=== PATIENT | female | born 1950 | race Caucasian/White ===

== ENCOUNTER 2019-05-15 14:33 | Emergency (ER) | payer MEDICARE ==
[~2019-05-15] VITALS: Ht 167.6 cm; Wt 61.4 kg
[2019-05-15 14:41] VITALS: Ht 167.6 cm; Wt 61.4 kg
[2019-05-15] MEDS ORDERED: LEXAPRO10 MG PO (14:42)
[2019-05-15] MEDS ORDERED: DONEPEZIL HCL10 MG PO (14:43)
[2019-05-15] MEDS ORDERED: LIPITOR40 MG PO (14:43)
[2019-05-15] MEDS ORDERED: PRISTIQ50 MG PO (14:44)
[2019-05-15 15:17] LABS: BASOPHILS 0.3 % (0-2); EOSINOPHILS 4.4 % (0-7); HEMATOCRIT 43.3 % (36.0-48.0); HEMOGLOBIN 14.4 g/dL (12-16); IMMATURE GRANULOCYTES 0.3 % (0-5); LYMPHOCYTES 13.5 % (15-50); MCH 33.2 pg (26.0-34.0); MCHC 33.3 g/dL (31.0-37.0); MCV 99.8 fL (80.0-100.0); MEAN PLATELET VOLUME 8.9 fL (7.4-10.4); MONOCYTES 7.1 % (2-11); NEUTROPHILS 74.4 % (40-80); PLATELET COUNT 281 10x3/uL (130-400); RBC 4.34 10x6/uL (4.00-5.40); RDW 13.1 % (11.5-14.5)
[2019-05-15 15:29] LABS: APPEARANCE CLEAR (CLEAR); BILIRUBIN NEGATIVE (NEGATIVE); COLOR YELLOW (YELLOW); GLUCOSE NEGATIVE (NEGATIVE); KETONE NEGATIVE (NEGATIVE); NITRITE NEGATIVE (NEGATIVE); PROTEIN NEGATIVE (NEGATIVE); UROBILINOGEN NORMAL (NORMAL)
[2019-05-15 15:30] LABS: RED CELLS - URINE 0-5 /hpf (0-5); WHITE CELLS - URINE OCC /hpf (NEGATIVE)
[2019-05-15 15:33] LABS: CALC OSMOLALITY 275 mosm/kg (275-300); CALCIUM 8.9 mg/dL (8.5-10.1); CARBON DIOXIDE 28.3 mmol/L (21.0-32.0); CHLORIDE - SERUM 103 mmol/L (98-107); CREATININE - SERUM 0.6 mg/dL (0.6-1.3); GLUCOSE 89 mg/dL (74-106); POTASSIUM - SERUM 3.5 mmol/L (3.5-5.1); SODIUM 139 mmol/L (136-145); UREA NITROGEN 10 mg/dL (7-18); eGFR NON AFRICAN AMERICAN > 90 mL/min (90-120)
[2019-05-15 15:39] LABS: ALBUMIN 3.5 g/dL (3.4-5.0); ALKALINE PHOSPHATASE 108 U/L (46-116); ALT (SGPT) 22 U/L (10-68); AMYLASE - SERUM 49 U/L (25-115); BILIRUBIN - TOTAL 0.29 mg/dL (0.2-1.3); LIPASE 127 U/L (73-393); PROTEIN - SERUM 6.6 g/dL (6.4-8.2)
[2019-05-15] MEDS ORDERED: ZOFRAN4 MG PO (17:06)
[2019-05-15 18:12] VITALS: BP 136/73
== END 2019-05-15 18:12 | disposition home or self-care (01) ==
LOC: D.ER 14:33
PROVIDERS: Family Medicine
DX: A08.4 Viral intestinal infection, unspecified (principal); E78.5 Hyperlipidemia, unspecified; Z95.0 Presence of cardiac pacemaker

== ENCOUNTER 2019-05-31 08:27 | Inpatient (IN) | payer MEDICARE ==
[~2019-05-31] VITALS: Ht 167.6 cm; Wt 58.5 kg
[~2019-05-31 08:27] MED LIST: DONEPEZIL HCL10 MG PO; LEXAPRO10 MG PO; LIPITOR40 MG PO; PRISTIQ50 MG PO; ZOFRAN4 MG PO
[2019-05-31 08:58] LABS: HEMATOCRIT 40.3 % (36.0-48.0); HEMOGLOBIN 13.6 g/dL (12-16); MCH 32.3 pg (26.0-34.0); MCHC 33.7 g/dL (31.0-37.0); MCV 95.7 fL (80.0-100.0); MEAN PLATELET VOLUME 8.8 fL (7.4-10.4); PLATELET COUNT 355 10x3/uL (130-400); RBC 4.21 10x6/uL (4.00-5.40); RDW 12.7 % (11.5-14.5); WBC 21.2 10x3/uL (4.8-10.8)
[2019-05-31 09:03] LABS: CALC OSMOLALITY 281 mosm/kg (275-300); CALCIUM 8.5 mg/dL (8.5-10.1); CARBON DIOXIDE 27.8 mmol/L (21.0-32.0); CHLORIDE - SERUM 104 mmol/L (98-107); CREATININE - SERUM 0.7 mg/dL (0.6-1.3); GLUCOSE 98 mg/dL (74-106); POTASSIUM - SERUM 3.1 mmol/L (3.5-5.1); SODIUM 142 mmol/L (136-145); UREA NITROGEN 9 mg/dL (7-18); eGFR NON AFRICAN AMERICAN 88 mL/min (90-120)
[2019-05-31 09:09] LABS: ALKALINE PHOSPHATASE 105 U/L (46-116); ALT (SGPT) 28 U/L (10-68); BILIRUBIN - TOTAL 0.29 mg/dL (0.2-1.3); LIPASE 186 U/L (73-393); PROTEIN - SERUM 6.1 g/dL (6.4-8.2)
[2019-05-31 09:17] LABS: EOSINOPHILS 20 % (0-7); LYMPHOCYTES 7 % (15-50); MONOCYTES 4 % (2-11); NEUTROPHILS 67 % (40-80); PLATELET ESTIMATE NORMAL
[2019-05-31 09:24] LABS: APPEARANCE CLEAR (CLEAR); BILIRUBIN NEGATIVE (NEGATIVE); COLOR YELLOW (YELLOW); GLUCOSE NEGATIVE (NEGATIVE); KETONE NEGATIVE (NEGATIVE); NITRITE NEGATIVE (NEGATIVE); PROTEIN NEGATIVE (NEGATIVE); UROBILINOGEN NORMAL (NORMAL)
[2019-05-31 09:25] LABS: BACTERIA NONE SEEN /hpf (NEGATIVE); EPITHELIAL CELLS NSEEN /hpf (0-5); RED CELLS - URINE 0-5 /hpf (0-5); WHITE CELLS - URINE NSEEN /hpf (NEGATIVE)
--- NOTE | 2019-05-31 09:48 | NUR ---
TALKED TO PTS DAUGHTER ON THE PHONE, SHE STATES PT HAS DEMENTIA AND IS NOT TAKING HER MEDS LIKE SHE SHOULD, NOT DRINKING ENOUGH WATER. WAS IN [facility] FOR SAME COMPLAINT A WEEK AGO. DX WITH INFECTIOUS ENTERITIS IN HER LOWER BOWEL AND INFLAMED COLON.
[2019-05-31] MEDS ORDERED: ED-SPAZ0.125 MG PO (11:33)
[2019-05-31] MEDS ORDERED: LIPITOR20 MG PO (11:57)
[2019-05-31 13:44] VITALS: BP 101/40
[2019-05-31 17:48] VITALS: BP 99/58
[2019-05-31 19:30] VITALS: BP 164/33
[2019-06-01 00:30] VITALS: BP 130/91
--- NOTE | 2019-06-01 02:39 | NUR ---
I have reviewed this patient and I concur with the Shift Assessment completed by the Licensed Practical Nurse today this shift.
[2019-06-01 05:01] VITALS: BP 98/40
[2019-06-01 05:58] LABS: BASOPHILS 0.2 % (0-2); EOSINOPHILS 17.4 % (0-7); HEMATOCRIT 32.5 % (36.0-48.0); HEMOGLOBIN 10.9 g/dL (12-16); IMMATURE GRANULOCYTES 0.4 % (0-5); LYMPHOCYTES 7.7 % (15-50); MCHC 33.5 g/dL (31.0-37.0); MCV 98.5 fL (80.0-100.0); MONOCYTES 4.7 % (2-11); NEUTROPHILS 69.6 % (40-80); PLATELET COUNT 288 10x3/uL (130-400); RDW 13.3 % (11.5-14.5); WBC 21.5 10x3/uL (4.8-10.8)
[2019-06-01 06:22] LABS: CALCIUM 7.6 mg/dL (8.5-10.1); CARBON DIOXIDE 23.1 mmol/L (21.0-32.0); CHLORIDE - SERUM 110 mmol/L (98-107); GLUCOSE 95 mg/dL (74-106); MAGNESIUM - SERUM 1.9 mg/dL (1.8-2.4); SODIUM 142 mmol/L (136-145)
[2019-06-01 06:24] LABS: CALC OSMOLALITY 279 mosm/kg (275-300); CREATININE - SERUM 0.5 mg/dL (0.6-1.3); POTASSIUM - SERUM 3.6 mmol/L (3.5-5.1); UREA NITROGEN 4 mg/dL (7-18); eGFR NON AFRICAN AMERICAN > 90 mL/min (90-120)
[2019-06-01 08:05] VITALS: BP 96/43
--- NOTE | 2019-06-01 08:34 | NUR ---
DAUGHTER IN ROOM. CL IN REACH. PATIENT UP TO BEDSIDE COMMODE. REPORTS NAUSEA. CL IN REACH. WCTM
[2019-06-01 12:38] VITALS: Ht 167.6 cm; Wt 58.5 kg
[2019-06-01 12:45] VITALS: BP 105/40
[2019-06-01] MEDS ORDERED: LEXAPRO10 MG PO (13:19)
--- NOTE | 2019-06-01 13:21 | NUR ---
PATIENT STATES SHE NEEDS HER "ANXIETY DEPRESSION MEDICINE." I ASKED HER WHAT AND SHE SAID LEXAPRO. TOLD HER THAT I WOULD ADD TO HER HOME MED LIST. CL IN REACH. SOPHIATM
--- NOTE | 2019-06-01 13:39 | NUR ---
PATIENT ON CL CO GAS PAINS. WILL SEE WHAT I CAN GET HER. CL IN REACH. WCTM
[2019-06-01 16:17] VITALS: BP 102/40
[2019-06-01 19:30] VITALS: BP 107/35
--- NOTE | 2019-06-01 20:00 | NUR ---
ALERT UP AMBULATING IN ROOM, DENIES PAIN OR NEEDS AT THIS TIME, SEE SHIFT ASSESSMENT, CALL LIGHT IN REACH
[2019-06-02 00:30] VITALS: BP 98/36
[2019-06-02 04:50] VITALS: BP 120/47
[2019-06-02 07:05] LABS: BASOPHILS 0.4 % (0-2); EOSINOPHILS 39.4 % (0-7); HEMATOCRIT 34.4 % (36.0-48.0); HEMOGLOBIN 11.1 g/dL (12-16); IMMATURE GRANULOCYTES 1.3 % (0-5); LYMPHOCYTES 13.1 % (15-50); MCH 31.6 pg (26.0-34.0); MCHC 32.3 g/dL (31.0-37.0); MEAN PLATELET VOLUME 8.6 fL (7.4-10.4); MONOCYTES 5.5 % (2-11); NEUTROPHILS 40.3 % (40-80); PLATELET COUNT 286 10x3/uL (130-400); RBC 3.51 10x6/uL (4.00-5.40); RDW 13.3 % (11.5-14.5)
[2019-06-02 07:06] LABS: WBC 13.9 10x3/uL (4.8-10.8)
[2019-06-02 07:18] LABS: CALC OSMOLALITY 282 mosm/kg (275-300); CALCIUM 8.2 mg/dL (8.5-10.1); CARBON DIOXIDE 25.5 mmol/L (21.0-32.0); CHLORIDE - SERUM 110 mmol/L (98-107); CREATININE - SERUM 0.4 mg/dL (0.6-1.3); GLUCOSE 81 mg/dL (74-106); MAGNESIUM - SERUM 2.1 mg/dL (1.8-2.4); POTASSIUM - SERUM 3.8 mmol/L (3.5-5.1); SODIUM 144 mmol/L (136-145); UREA NITROGEN 3 mg/dL (7-18); eGFR NON AFRICAN AMERICAN > 90 mL/min (90-120)
--- NOTE | 2019-06-02 08:00 | NUR ---
DAUGHTER IN ROOM. STATES SHE HAS DEMENTIA, A HEADACHE, AND NAUSEA. CL IN REACH. TM
[2019-06-02 09:19] VITALS: BP 114/66
[2019-06-02 12:40] LABS: BASOPHILS 1 % (0-2); EOSINOPHILS 34 % (0-7); LYMPHOCYTES 13 % (15-50); MONOCYTES 6 % (2-11); NEUTROPHILS 45 % (40-80); PLATELET ESTIMATE NORMAL; SMUDGE CELLS OCC
[2019-06-02 12:41] LABS: ANISOCYTOSIS OCC
[2019-06-02 13:53] VITALS: BP 123/52
[2019-06-02 18:05] VITALS: BP 117/40
[2019-06-02 20:52] VITALS: BP 121/50
[2019-06-03] VITALS (7 sets, daily range): BP systolic 84–118; BP diastolic 37–62
[2019-06-03 05:04] LABS: BASOPHILS 0.6 % (0-2); EOSINOPHILS 31.3 % (0-7); HEMATOCRIT 34.1 % (36.0-48.0); IMMATURE GRANULOCYTES 1.9 % (0-5); MCH 31.6 pg (26.0-34.0); MCHC 32.3 g/dL (31.0-37.0); MEAN PLATELET VOLUME 8.9 fL (7.4-10.4); MONOCYTES 6.9 % (2-11); NEUTROPHILS 41.3 % (40-80); PLATELET COUNT 331 10x3/uL (130-400); RBC 3.48 10x6/uL (4.00-5.40); RDW 13.3 % (11.5-14.5); WBC 10.8 10x3/uL (4.8-10.8)
[2019-06-03 05:26] LABS: CALC OSMOLALITY 278 mosm/kg (275-300); CALCIUM 8.2 mg/dL (8.5-10.1); CARBON DIOXIDE 26.2 mmol/L (21.0-32.0); CHLORIDE - SERUM 108 mmol/L (98-107); CREATININE - SERUM 0.5 mg/dL (0.6-1.3); GLUCOSE 90 mg/dL (74-106); MAGNESIUM - SERUM 2.1 mg/dL (1.8-2.4); POTASSIUM - SERUM 3.8 mmol/L (3.5-5.1); SODIUM 142 mmol/L (136-145); eGFR NON AFRICAN AMERICAN > 90 mL/min (90-120)
[2019-06-03 05:35] LABS: UREA NITROGEN 2 mg/dL (7-18)
--- NOTE | 2019-06-03 08:21 | NUR ---
AWAKE AND AELRT ORIENTED X3. ANSWERS ALL QUESTIONS APPROPRIATELY. LUNGS ARE CLEAR BILATERALLY, NO COUGH NOTED. SKIN IS INTACT WTIHOUT REDNESS. IV TO RIGHT FOREARM IS PATENT WTIHOUT REDNESS AT INSERTION SITE. DENIES NEEDS.
--- NOTE | 2019-06-03 10:12 | NUR ---
TOOK AM MEDS WITHOUT DIFFICULTY. DENIES NEEDS.
--- NOTE | 2019-06-03 12:30 | NUR ---
ATE OVER HALF OF FULL LIQUID LUNCH WITHOUT NAUSEA OR DIARRHEA. DENIES NEEDS.
--- NOTE | 2019-06-03 14:00 | NUR ---
HAD SMALL AMOUNT OF WATERY STOOL WITH POSSIBLE BLOOD. UP TO SHOWER WITH SET UP ASSIST.
--- NOTE | 2019-06-03 18:14 | NUR ---
ATE MOST OF SUPPER. VISITIORS IN ROOM. DENIES NEEDS. NO CHANGES NOTED.
--- NOTE | 2019-06-04 02:58 | NUR ---
ALERT ABLE TO VOICE NEEDS AND WANTS TO STAFF. ON ROOM AIR, IV TO RIGHT FA WITH NS WITH 40 OF K AT 70ML/HR. REMAINS ON ENTERIC ISOLATION. SCD'S PLACED ON PATIENT BUT SHE REMOVED. CALL LIGHT AND WATER IN REACH.
[2019-06-04 06:07] LABS: HEMOGLOBIN 12.4 g/dL (12-16); MCH 31.6 pg (26.0-34.0); MCHC 32.6 g/dL (31.0-37.0); MCV 96.7 fL (80.0-100.0); MEAN PLATELET VOLUME 8.7 fL (7.4-10.4); PLATELET COUNT 310 10x3/uL (130-400); RBC 3.93 10x6/uL (4.00-5.40); RDW 13.1 % (11.5-14.5); WBC 8.9 10x3/uL (4.8-10.8)
[2019-06-04 06:55] LABS: CALC OSMOLALITY 279 mosm/kg (275-300); CALCIUM 8.6 mg/dL (8.5-10.1); CARBON DIOXIDE 24.7 mmol/L (21.0-32.0); CHLORIDE - SERUM 107 mmol/L (98-107); CREATININE - SERUM 0.6 mg/dL (0.6-1.3); GLUCOSE 91 mg/dL (74-106); MAGNESIUM - SERUM 2.1 mg/dL (1.8-2.4); POTASSIUM - SERUM 3.8 mmol/L (3.5-5.1); SODIUM 142 mmol/L (136-145); eGFR NON AFRICAN AMERICAN > 90 mL/min (90-120)
[2019-06-04 06:56] LABS: UREA NITROGEN 5 mg/dL (7-18)
--- NOTE | 2019-06-04 07:52 | NUR ---
AWAKE AND ALERT. ORIENTED X3. NO C/O AT THIS TIME. CHANGED HER MIND ABOUT REAL FOOD THIS AM. WILL MONITOR HOW SHE DOES WITH REGULAR DIET. LUNGS ARE CLEAR BILATERALLY,NO COUGH NOTED. SKIN IS INTACT WTIHOUT REDNESS. NO BM IN PM,ONLY ONE IN 24 HOURS. WILL CONTINUE TO MONITOR. IV TO RIGHT FOREARM IS PATENT WITHOUT REDNESS AT INSERTION SITE. DENIES NEEDS.
[2019-06-04 09:16] LABS: ANISOCYTOSIS OCC; EOSINOPHILS 14 % (0-7); LYMPHOCYTES 17 % (15-50); MONOCYTES 11 % (2-11); NEUTROPHILS 57 % (40-80); PLATELET ESTIMATE NORMAL; SMUDGE CELLS OCC
--- NOTE | 2019-06-04 09:30 | NUR ---
ATE ABOUT 75% OF REGULAR BREAKFAST TRAY. TOOK AM MEDS WITHOUT DIFFICULTY. NO NAUSEA OR PAIN WITH REAL FOOD. WILL MONITOR.
--- NOTE | 2019-06-04 09:38 | NUR ---
NUTRITION F/U PT REMAINS IN ISOLATION. REPORTS TOLERATING REG DIET WITH ~50% INTAKE BREAKFAST. PT STATES SHE TRYING TO BE CAREFUL NOT TO "OVERDO IT." WILL CONTINUE TO PROVIDE DIET, MONITOR PO INTAKE. RD FOLLOWING
[2019-06-04 10:12] VITALS: BP 97/62
[2019-06-04 12:47] VITALS: BP 106/59
--- NOTE | 2019-06-04 15:12 | MORECARE ---
CASE MANAGEMENT DISCHARGE SUMMARY PATIENT: SAHIL EARL UNIT: [id number] ADM DATE: 05/31/19 AGE: 69 : 50 SEX: F ROOM/BED: D.2203 AUTHOR: ROSEMARY,DOC PHYSICIAN: REFERRING PHYSICIAN: ABUNDIO ROGERS MD DATE OF SERVICE: 06/04/19 Discharge Plan Patient Name: SAHIL EARL Facility: [facility]:[place] : 1950 Planned Disposition: Home Anticipated Discharge Date: 06/04/19 Discharge Date: Expected LOS: 4 Initial Reviewer: [email or web address] Initial Review Date: 06/04/2019 Generated: 06/04/19 4:12 pm Comments DCP- Discharge Planning Updated by [email or web address]: Carmen Levine on 06/04/19 2:[address] Patient Name: SAHIL EARL Admission Status: Elective Accout number: [id number] Admission Date: 05-31-2019 : 1950 Admission Diagnosis: Attending: ABUNDIO ROGERS Current LOS: 4 Anticipated DC Date: 06-04-2019 Planned Disposition: Home Primary Insurance: MEDICARE A & B Discharge Planning Comments: CM met with patient to complete initial dc planning assessment. CM educated patient on the CM role and verbal consent given by patient to complete assessment. Patient lives at home alone, although states her boyfriend is staying with her right now. At discharge patient plans to return and feels this is a safe discharge. CM discussed availability of home health, rehab services, and medical equipment. Patient denied known discharge needs at this time. CM will continue to follow and will assist as needed with dc plans/needs. Network Cabler: Carmen Levine DCPIA - Discharge Planning Initial Assessment Updated by [email or web address]: Carmen Levine on 06/04/19 3:06 pm * Is the patient Alert and Oriented? Yes * PCP None * Preadmission Environment Home with Family * ADLs Independent * Equipment Other * Other Equipment Monitor under her bed that tests pacemaker battery 24/12 * List name and contact numbers for known caregivers / representatives who currently or will assist patient after discharge: James hernadez - [phone] Beatrice Bhat [phone] * Verbal permission to speak to the caregivers and representatives has been obtained from the patient. Yes * Community resources currently utilized None * Additional services required to return to the preadmission environment? No * Can the patient safely return to the preadmission environment? Yes * Has this patient been hospitalized within the prior 30 days at any hospital? No Patient Name: SAHIL EARL Page [id number] at 1512 All edits/amendments must be made on the electronic document DICTATION DATE: 06/04/191511 SALES PERSON: SATNAM 06/04/191511 RPT#: [id number] DC DATE: STATUS: ADM IN [facility] [address] [place] [address] END OF REPORT
[2019-06-04] MEDS ORDERED: FLAGYL500 MG PO (15:37)
--- NOTE | 2019-06-04 16:30 | NUR ---
DISCHARGE ORDERS RECEIVED. DISCHARGE INSTRUCTIONS GIVEN BOTH VERBALLY AND WRITTEN. ALL QUESTIONS ANSWERED. PATIENT VERBALIZED UNDERSTANDING OF SAME. IV TO RIGHT FOREARM D/C WITH CATHETER INTACT. WAITING ON RIDE FOR CLOTHES T0 DISCHARGE.
--- NOTE | 2019-06-04 17:00 | NUR ---
DISCHARGED TO HOME AMBULATORY WITH SIGNIFICANT OTHER. ALL BELONGINGS WITH PATIENT. NEEDED PRESCRIPTIONS ESCRIBED TO PHARMACY OF CHOICE.
[2019-06-05 16:08] LABS: OVA + PARASITE EXAM Final report (())
--- NOTE | 2019-06-06 09:43 | MORECARE ---
CASE MANAGEMENT DISCHARGE SUMMARY PATIENT: SAHIL EARL UNIT: [id number] ADM DATE: 05/31/19 AGE: 69 : 50 SEX: F ROOM/BED: D.2203 AUTHOR: ROSEMARY,DOC PHYSICIAN: REFERRING PHYSICIAN: ABUNDIO ROGERS MD DATE OF SERVICE: 06/06/19 Discharge Plan Patient Name: SAHIL EARL Facility: [facility]:[place] : 1950 Planned Disposition: Home Anticipated Discharge Date: 06/04/19 Discharge Date: 06/04/2019 Expected LOS: 4 Initial Reviewer: [email or web address] Initial Review Date: 06/04/2019 Generated: 06/06/19 10:43 am Comments DCP- Discharge Planning Updated by [email or web address]: Carmen Levine on 06/04/19 2:[address] Patient Name: SAHIL EARL Admission Status: Elective Accout number: [id number] Admission Date: 05-31-2019 : 1950 Admission Diagnosis: Attending: ABUNDIO ROGERS Current LOS: 4 Anticipated DC Date: 06-04-2019 Planned Disposition: Home Primary Insurance: MEDICARE A & B Discharge Planning Comments: CM met with patient to complete initial dc planning assessment. CM educated patient on the CM role and verbal consent given by patient to complete assessment. Patient lives at home alone, although states her boyfriend is staying with her right now. At discharge patient plans to return and feels this is a safe discharge. CM discussed availability of home health, rehab services, and medical equipment. Patient denied known discharge needs at this time. CM will continue to follow and will assist as needed with dc plans/needs. Germination Worker: Carmen Levine DCPIA - Discharge Planning Initial Assessment Updated by [email or web address]: Carmen Levine on 06/04/19 3:06 pm * Is the patient Alert and Oriented? Yes * PCP None * Preadmission Environment Home with Family * ADLs Independent * Equipment Other * Other Equipment Monitor under her bed that tests pacemaker battery 24/12 * List name and contact numbers for known caregivers / representatives who currently or will assist patient after discharge: James [email or web address] - [phone] Beatrice Bhat [phone] * Verbal permission to speak to the caregivers and representatives has been obtained from the patient. Yes * Community resources currently utilized None * Additional services required to return to the preadmission environment? No * Can the patient safely return to the preadmission environment? Yes * Has this patient been hospitalized within the prior 30 days at any hospital? No Coverage Notice Reviewer: [email or web address] Gisselle Carmen Ribeirochung Notice Issued Date-Time: 06/04/2019 15:16 Notice Type: IM Discharge Notice Notice Delivered To: Patient Relationship to Patient: Radiological Technologist Name: Delivery Method: HAND - Hand Delivered Lali Days: Prior Verbal Notification: Recipient Understood Notice: Yes Recipient Signature: Yes Med Rec Note Co-signed by Attending: Coverage Notice Comment: IMM explained, signed given, copy placed in MR Last DP export: 06/04/19 2:12 pm Patient Name: SAHIL EARL Page [id number] at 0943 All edits/amendments must be made on the electronic document DICTATION DATE: 06/06/19942 HARVESTING SUPERVISOR: SATNAM 06/06/19942 RPT#: [id number] DC DATE:06/04/19 STATUS: DIS IN [facility] [address] [place] [address] END OF REPORT
== END 2019-06-04 17:00 | disposition home or self-care (01) | DRG 371 ==
LOC: D.ER 08:27 → D.MS 11:06
PROVIDERS: Emergency Medicine; ADMIT Internal Medicine Nephrology; ATTEND Internal Medicine Nephrology
DX: A04.72 Enterocolitis due to Clostridium difficile, not specified as recurrent (principal); E43 Unspecified severe protein-calorie malnutrition; K51.00 Ulcerative (chronic) pancolitis without complications; E87.6 Hypokalemia; D72.1 Eosinophilia